=== PATIENT | female | born 1990 | race Caucasian/White ===

== ENCOUNTER 2018-07-21 11:34 | Inpatient (IN) | payer OTHER ==
[~2018-07-21 11:34] MED LIST: HYDROcodone/Acetaminophen 5/325 mg Tablet PO PRN; Ibuprofen 800 MG TAB PO PRN; Lidocaine 1% (PF) 30 ML VIAL SC PRN; NS / Oxytocin 40 units/1000ml 1,000 ML IV PRN; Ondansetron PF 4 MG/2 ML Vial IVP PRN; Promethazine HCl 25 MG/ML VIAL IM PRN
[2018-07-21 12:12] VITALS: BMI 25.4
[2018-07-21 12:40] LABS: Hemoglobin 12.2 g/dL (12.0-16.0); Mean Corpuscular Hemoglobin 31.1 pg (27.0-31.0); Mean Corpuscular Volume 91.4 fL (78.0-98.0); Mean Platelet Volume 8.5 fL (7.4-10.4); Platelet Count 189 thou/uL (130-400); RBC Distribution Width 11.8 % (11.5-14.5); Red Blood Cell (RBC) Count 3.91 mill/uL (4.20-5.40); White Blood Cell (WBC) Count 8.6 thou/uL (4.8-10.8)
[2018-07-21 13:29] LABS: HBSAg Index 0.26 S/CO (0-0.99); Hep B Surf Ag Non-Reactive S/CO (NonReactive)
[2018-07-21 13:39] LABS: Syphilis Antibody Nonreactive (Nonreactive); Syphilis Antibody Index 0.09 S/CO (<1.00 Non-Reactive)
[2018-07-21] MEDS ORDERED: Oxytocin 10 UNITS/ML VIAL ONE (16:54)
[2018-07-21] MEDS ORDERED: NS w/ Oxytocin 10 units 500 ML ONE (16:54)
[2018-07-21] MEDS ORDERED: NS w/ Oxytocin 10 units 500 ML IVPB SCH (17:45)
[2018-07-21] MEDS: Lactated Ringer's 1,000 ML IV SCH (18:41)
[2018-07-21] MEDS ORDERED: Lanolin Ointment 7 GM TUBE TOP PRN (23:37)
[2018-07-21] MEDS ORDERED: Benzocaine-Menthol 82.5 ML CAN TOP PRN (23:37)
[2018-07-21] MEDS ORDERED: Bisacodyl 10 MG SUPP PR PRN (23:37)
[2018-07-21] MEDS ORDERED: Ondansetron PF 4 MG/2 ML Vial IVP PRN (23:37)
[2018-07-21] MEDS ORDERED: HYDROcodone/Acetaminophen 5/325 mg Tablet PO PRN ×2 (23:37)
[2018-07-21] MEDS ORDERED: Milk Of Magnesia 30 ML UDCUP PO PRN (23:37)
[2018-07-21] MEDS ORDERED: NS / Oxytocin 40 units/1000ml 1,000 ML IV SCH (23:45)
[2018-07-22] MEDS: Lactated Ringer's 1,000 ML IV SCH ×3 (03:17→18:11)
[2018-07-22] MEDS: Ibuprofen 800 MG TAB PO SCH ×3 (05:51→21:43)
[2018-07-22] MEDS: Ferrous Sulfate 325 MG TAB PO SCH ×2 (07:40→16:19)
[2018-07-22] MEDS ORDERED: Adacel (T-DAP) 0.5 ML SYRINGE IM ONE (09:00)
[2018-07-22] MEDS: Prenatal Vitamin 1 TAB PO SCH (09:54)
[2018-07-22] MEDS: Docusate Calcium (SURFAK) 240 MG CAP PO SCH ×2 (09:54→21:44)
--- NOTE | 2018-07-22 10:55 | DN ---
DATE OF PROCEDURE: 07/21/2018 PREOPERATIVE DIAGNOSES: 1. A 28-year-old G3, P1-0-1-1 at 38 weeks and 1 day for direct admission for augmentation of labor. 2. Artificial rupture of membranes with clear fluid. 3. Group B Streptococcus negative. POSTOPERATIVE DIAGNOSES: 1. A 28-year-old G3, P1-0-1-1 at 38 weeks and 1 day for direct admission for augmentation of labor. 2. Artificial rupture of membranes with clear fluid. 3. Group B Streptococcus negative. 4. Live born male infant, weighing 7 pounds 0 ounces with Apgars of 8 and 9 at 1 and 5 minutes respectively. ANESTHESIA: Local for repair. ESTIMATED BLOOD LOSS: Approximately 50 mL, quantitative blood loss was 74. CLINICAL HISTORY: This patient is a 28-year-old female, G3, P1-0-1-1, who presented to my office for her routine OB visit at 38 weeks and 1 day. She was noted at that time to be 4 cm, 70% effaced, and -2 station. The patient had a history of rapid deliveries and desired to go naturally. She was counseled on induction or augmentation of labor. She was sent to Labor and Delivery, and an amniotomy was performed. Immediately afterwards, she began sanjay regularly with contractions every 2 minutes. However, her cervix in the matter of 4 hours changed to 5 cm, 80% effaced, and -2 station. The patient was then placed on Pitocin and progressed appropriately and at 9 cm with complaining of pressure and desire to push. DESCRIPTION OF PROCEDURE: With good maternal effort, the patient was able to bring the vertex to position. The head was then delivered in the NISHANT position and a nuchal cord was identified, which was loose. This was reduced before the delivery of the anterior shoulder, followed by the posterior shoulder, followed by the remainder of the infant's body. The infant was stimulated and cleansed, and the cord was doubly clamped and then cut by the father of the baby. The was then placed on the maternal abdomen for continued stimulation. Cord blood was obtained. The was crying vigorously from the moment he was delivered. The placenta was then delivered spontaneously intact with a three-vessel cord and the uterine massage noted a firm uterus well below the umbilicus. Exploration of the vagina, cervix, and introitus noted a small first-degree laceration that was not bleeding, but was repaired with a running suture of 3-0 Vicryl on SH after lidocaine was given for local anesthesia. The patient was then cleansed and de-draped and was able to recover in her Labor and Delivery room with her . All needle, sponge, lap, and instrument counts were correct x2. Again, the infant was a live born male, weighing 7 pounds 0 ounce with Apgars of 8 and 9 at 1 and 5 minutes respectively. Estimated blood loss was 50 and quantitative blood loss was 74. There were no other issues surrounding this delivery. Job ID: [id number]
[2018-07-23] MEDS: Lactated Ringer's 1,000 ML IV SCH (06:02)
[2018-07-23] MEDS: Ibuprofen 800 MG TAB PO SCH (06:19)
[2018-07-23 08:14] VITALS: BP 109/58; TEMP 97.7
[2018-07-23] MEDS: Ferrous Sulfate 325 MG TAB PO SCH (09:14)
[2018-07-23] MEDS: Docusate Calcium (SURFAK) 240 MG CAP PO SCH (09:16)
[2018-07-23] MEDS: Prenatal Vitamin 1 TAB PO SCH (09:16)
== END 2018-07-23 12:30 | disposition home or self-care (01) | DRG 807 ==
LOC: UNDOADMIN 11:34 → L&D 11:34 → 3SW 07-22 02:16
PROVIDERS: ADMIT Obstetrics & Gynecology; ATTEND Obstetrics & Gynecology
PROC: 10907ZC Drainage of Amniotic Fluid, Therapeutic from Products of Conception, Via Natural or Artificial Opening (ICD-10-PCS; principal; 2018-07-21)
PROC: 10E0XZZ Delivery of Products of Conception, External Approach (ICD-10-PCS; 2018-07-21)
DX: O69.81X0 Labor and delivery complicated by cord around neck, without compression, not applicable or unspecified (principal); Z37.0 Single live birth; O70.0 First degree perineal laceration during delivery; Z3A.38 38 weeks gestation of pregnancy
CPT/HCPCS: 36415; 85027; 86780; 86850; 86900; 86901; 87340; J2001; J2590

== ENCOUNTER 2022-09-28 08:35 | Outpatient (CLI) | payer BC | END 2022-09-28 08:36 | disposition home or self-care (01) | LOC: RAD-FRANK 08:35 | PROVIDERS: ATTEND Nurse Practitioner Family | DX: R05.3 Chronic cough (principal) | CPT/HCPCS: 71046 ==